=== PATIENT | female | born 1965 | race Caucasian/White ===

== ENCOUNTER → 2020-07-25 09:36 | Outpatient (BNVA) | payer OTHER, SELFPAY | PROVIDERS: PCP Internal Medicine; Referring Provider Internal Medicine; Visit Provider Urology | DX: N32.81 Overactive bladder (principal) | CPT/HCPCS: 51798; 81002; 99202 ==

== ENCOUNTER 2020-09-03 08:21 | Outpatient (REF) | payer OTHER, SELFPAY ==
--- NOTE | 2020-09-03 08:28 | US_ITS ---
EXAMINATION: US ABDOMEN COMPLETE CLINICAL INFORMATION: Epigastric pain. COMPARISON: None. TECHNIQUE: Real-time imaging of the abdominal viscera. FINDINGS: PANCREAS: Normal. ABDOMINAL AORTA: The proximal, mid, and distal segments are normal in caliber. INFERIOR VENA CAVA: Visualized portions are normal. LIVER: The liver is normal in size. The liver contour is normal. Parenchymal echogenicity is increased. No focal hepatic lesion. There is no intrahepatic biliary duct dilatation seen. GALLBLADDER: Normal. The gallbladder is physiologically distended without evidence of stones, sludge, polyps, wall thickening or pericholecystic fluid. COMMON BILE DUCT: Normal in caliber measuring 0.29 cm in diameter. RIGHT KIDNEY: No hydronephrosis. There are 2 echogenic stones seen. A midpole stone measuring 1.2 x 0.39 x 1.0 cm and a lower pole stone measures 0.33 x 0.22 x 0.18 cm.. The kidney measures 10.2 cm in maximum dimension. LEFT KIDNEY: Normal. No hydronephrosis. No renal calculi or focal parenchymal lesions. The kidney measures 10.0 cm in maximum dimension. SPLEEN: The spleen measures 8.0 cm in maximum dimension. FREE FLUID: None. US/US abdomen complete IMPRESSION: Hepatic steatosis without focal lesion. Nonobstructive right renal midpole and lower pole calculi. The rest of the abdominal ultrasound is unremarkable.
== END 2020-09-03 08:22 | disposition home or self-care (01) ==
LOC: HO.HMGCX 08:21
PROVIDERS: PCP Internal Medicine; Visit Provider Internal Medicine
DX: R10.13 Epigastric pain (principal)
CPT/HCPCS: 76700

== ENCOUNTER → 2020-09-27 10:06 | Outpatient (BNVA) | payer OTHER, SELFPAY | PROVIDERS: PCP Internal Medicine; Visit Provider Urology | DX: N39.0 Urinary tract infection, site not specified (principal); N20.0 Calculus of kidney; N32.81 Overactive bladder; A49.9 Bacterial infection, unspecified | CPT/HCPCS: 81002; 99212 ==

== ENCOUNTER 2020-10-01 09:49 | Emergency (ER) | payer OTHER, SELFPAY ==
[2020-10-01 10:02] VITALS: BP 107/66; PULSE 84; RESP 16; TEMP 36.5; O2SAT 97; BMI 34.3
--- NOTE | 2020-10-01 10:17 | ED.ALLEREA ---
HPI - Allergic Reaction General Chief complaint: Allergic Reaction Stated complaint: allergic reaction Time Seen by Provider: 10/01/20 10:17 Source: patient Mode of arrival: ambulatory Limitations: no limitations History of Present Illness HPI narrative: States taking bactrim x 2 doses for UTI given 2 days ago by her urologist and today having vaginal itch which she gets with abx yeat infection and rash to dorsum of the right foot. She had similar 4 year ago which she took the same antibiotics. MD complaint: allergic reaction Onset (ago): day(s) Exposure: other (Bactrim) Symptoms: rash Previous Allergic Reaction History: other (Rash) Related Data Home Medications Medication Instructions Recorded Confirmed albuterol sulfate 2.5 mg INHALATION Q4-6H PRN 07/25/20 albuterol sulfate 90 mcg/actuation 0 mcg INHALATION 07/25/20 aerosol inhaler bupropion HCl 300 mg 24 hr tablet, mg PO 07/25/20 extended release clonidine HCl 0.1 mg tablet 0.1 mg PO BID 07/25/20 cyclobenzaprine 10 mg tablet 10 mg PO BEDTIME 07/25/20 fluoxetine 20 mg capsule 40 mg PO QAM 07/25/20 pregabalin 100 mg capsule 0 mg PO 07/25/20 topiramate 50 mg tablet 0 mg PO 07/25/20 trazodone 100 mg tablet 200 mg PO BEDTIME 07/25/20 clonidine HCl 0.2 mg tablet 0.2 mg PO BID 09/27/20 Previous Rx's Medication Instructions Recorded oxybutynin chloride 10 mg 10 mg PO DAILY 60 Days #60 tab 09/13/20 tablet,extended release 24 hr sulfamethoxazole 800 1 tab PO BID 5 Days #10 tab 09/28/20 mg-trimethoprim 160 mg tablet cefdinir 300 mg PO BID 3 Days #6 cap 10/01/20 fluconazole [Diflucan] 150 mg PO DAILY #1 tab 10/01/20 metronidazole 1 appful VAGINAL BEDTIME #5 g 10/01/20 tamsulosin 0.4 mg PO BEDTIME #14 cap 10/03/20 tramadol 50 mg PO Q6H PRN #14 tab 10/03/20 Allergies Allergy/AdvReac Type Severity Reaction Status Date / Time sulfamethoxazole Allergy Rash Verified 10/03/20 10:13 [From Bactrim] trimethoprim [From Bactrim] Allergy Rash Verified 10/03/20 10:13 Review of Systems Review of Systems: Constitutional: No Weight loss, No Fever, No Chills, No Night Sweats, No Fatigue, No Malaise ENT/Mouth: No Hearing loss, No Ear Pain, No Nasal Congestion, No Sinus Pain, No Hoarseness, No sore throat, No Rhinorrhea, No Swallowing Difficulty Eyes: No Eye Pain, No Swelling, No Redness, No Foreign Body, No Discharge, No Vision Changes Cardiovascular: No Chest Pain, No SOB, No Dyspnea on Exertion, No Orthopnea, No Edema, No Palpitations Respiratory: No Cough, No Sputum, No Wheezing, No Smoke Exposure, No Dyspnea Gastrointestinal: No Nausea, No Vomiting, No Diarrhea, No Constipation, No abdominal Pain, No Hematochezia, No Melena Genitourinary: no irregular bleeding, No Dysuria, No Urinary Frequency, No Hematuria, No Urinary Incontinence, No Urgency, No Flank Pain Musculoskeletal: No joint pain, No Myalgias, No Joint Swelling Skin: No Skin Lesions, as noted per HPI Neuro: No Weakness, No Numbness, No Paresthesias, No Loss of Consciousness, No Dizziness, No Headache Psych: No Social Issues Heme/Lymph: No Bruising, No Bleeding,No Lymphadenopathy Endocrine: No Polyuria, No Polydipsia, No Temperature Intolerance Yes all other systems are reviewed and are negative [facility] Past Medical History Medical History Anxiety Asthma Depression Fibromyalgia Insomnia Kidney stones UTI (urinary tract infection) Surgical History History of back surgery Hx of appendectomy Hx of lithotripsy Social History Social History Smoking Status: Former smoker Substance Use Type: Marijuana Physical Exam Vital Signs: Vital Signs: Last Vital Signs Temp 97.7 F 10/01/20 10:02 Pulse 84 10/01/20 10:02 Resp 16 10/01/20 10:02 BP 107/66 10/01/20 10:02 Pulse Ox 97 10/01/20 10:02 Body Mass Index 34.3 Reviewed Const: General: cooperative and healthy appearing; No acute distress or intoxicated appearing Nutritional Appearance: average body habitus Orientation/consciousness: patient oriented x3 HENMT: Head: Yes normal to inspection Ears: hearing grossly normal bilaterally Eyes: General: appearance normal, both eyes and all related structures Visual Walton: normal visual walton by confrontation Neck: Neck: Yes normal visual inspection, No positive Brudzinski's sign, No positive Kernig's sign and No tender Thyroid: Thyroid normal Chest: Chest palpation & inspection: normal inspection of the chest Resp: Effort & Inspection: normal respiratory effort Cardio: Jugular venous distension: no JVD Rhythm: regular rhythm Heart sounds: S1 normal heart sound present and S2 normal heart sound present GI: Inspection: Yes normal to inspection Percussion: Yes normal to percussion Auscultation: normal bowel sounds : General: Yes no CVA tenderness Back/Spine/Pelvis: Back: no CVA tenderness Skin: General skin exam: no rashes or lesions noted Full body images: 1. Slightly raised urticarial type rash to the mid dorsal foot. No erythema. Neuro: General: patient oriented x3 Extrem: General: Yes normal to inspection Course Course Course Narrative: Likely allergy to Bactrim as she had before. Will change to cephalosporin has follow-up with Urology in 2 days, Diflucan 1 dose. Will add Bactrim to her allergy list. No findings to suggest Romo-Killian. Discharge Plan Discharge Clinical Impression: Adverse reaction to antibiotic Patient Disposition: Home, Self-Care Instructions: Antibiotic Medication Allergy (ED) Additional Instructions: Please add Bactrim to her allergy Do not take Bactrim in the future Start the new antibiotic as prescribed Follow-up with urologist as scheduled for procedure Return if any concerns or worsening symptoms Thank you Prescriptions: New cefdinir 300 mg capsule 300 mg PO BID 3 Days Qty: 6 RF: 0 fluconazole [Diflucan] 150 mg tablet 150 mg PO DAILY Qty: 1 RF: 0 metronidazole 1.3 % gel 1 appful vaginal BEDTIME Qty: 5 RF: 0 No Action oxybutynin chloride 10 mg tablet extended release 24hr 10 mg PO DAILY 60 Days Qty: 60 RF: 2 tramadol 50 mg tablet 50 mg PO Q6H PRN (Reason: pain) Qty: 14 RF: 0 tamsulosin 0.4 mg capsule 0.4 mg PO BEDTIME Qty: 14 RF: 0 pregabalin 100 mg capsule 0 mg PO RF: 0 topiramate 50 mg tablet 0 mg PO RF: 0 albuterol sulfate 90 mcg/actuation HFA aerosol inhaler 0 mcg inhalation RF: 0 bupropion HCl 300 mg tablet extended release 24 hr PO RF: 0 cyclobenzaprine 10 mg tablet 10 mg PO BEDTIME RF: 0 clonidine HCl 0.1 mg tablet 0.1 mg PO BID RF: 0 trazodone 100 mg tablet 200 mg PO BEDTIME RF: 0 fluoxetine 20 mg capsule 40 mg PO QAM RF: 0 albuterol sulfate 2.5 mg /3 mL (0.083 %) solution for nebulization 2.5 mg inhalation Q4-6H PRNRF: 0 clonidine HCl 0.2 mg tablet 0.2 mg PO BID RF: 0 sulfamethoxazole-trimethoprim [Bactrim DS] 800-160 mg tablet 1 tab PO BID 5 Days Qty: 10 RF: 0 Referrals: Chrystal Gonzalez MD [Primary Care Provider] - 1 week Interventions: ED Discharge Assessment Last Done: 10/01/20 10:30 Discharge Date/Time: 10/01/20 10:32
== END 2020-10-01 10:32 | disposition home or self-care (01) ==
PROVIDERS: Emergency Provider Emergency Medicine; PCP Internal Medicine
DX: L50.0 Allergic urticaria (principal); T36.8X5A Adverse effect of other systemic antibiotics, initial encounter; X58.XXXA Exposure to other specified factors, initial encounter; Z87.440 Personal history of urinary (tract) infections
CPT/HCPCS: 99283

== ENCOUNTER 2020-10-03 08:11 | Day surgery (SDC) | payer OTHER, SELFPAY ==
--- NOTE | 2020-10-02 13:07 | HO.ANESPROP2 ---
Documented by User: Mackenzie Tom 10/02/20 13:08 HPI - Anesthesia Eval Consult details Narrative: 55yo F for R ESWL No prev ESWL on record PMFSH Active Problems Active Problems: All Active Problems (Updated 10/02/20 @ 00:00 by Darinel Odonnell) Overactive bladder (Acute) Nephrolithiasis (Acute) UTI (urinary tract infection), bacterial (Acute) Past Medical History Medical History Anxiety Asthma Depression Fibromyalgia Insomnia Kidney stones UTI (urinary tract infection) Surgical History Surgical History History of back surgery Hx of appendectomy Hx of lithotripsy Social History Social History Smoking Status: Former smoker Use of substances other than those prescribed or required for medical reasons: Yes Substance Use Type: Marijuana Substance Use Frequency: Daily Advance Directives: No Advance Directives Information Provided: Yes Meds Allergies Allergy/AdvReac Type Severity Reaction Status Date / Time sulfamethoxazole Allergy Rash Verified 10/03/20 10:13 [From Bactrim] trimethoprim [From Bactrim] Allergy Rash Verified 10/03/20 10:13 Home Medications Medication Instructions Recorded Confirmed Last Taken Type albuterol sulfate 2.5 mg INHALATION Q4-6H PRN 07/25/20 Unknown History albuterol sulfate 90 mcg/actuation 0 mcg INHALATION 07/25/20 Unknown History aerosol inhaler bupropion HCl 300 mg 24 hr tablet, mg PO 07/25/20 Unknown History extended release clonidine HCl 0.1 mg tablet 0.1 mg PO BID 07/25/20 Unknown History cyclobenzaprine 10 mg tablet 10 mg PO BEDTIME 07/25/20 Unknown History fluoxetine 20 mg capsule 40 mg PO QAM 07/25/20 Unknown History pregabalin 100 mg capsule 0 mg PO 07/25/20 Unknown History topiramate 50 mg tablet 0 mg PO 07/25/20 Unknown History trazodone 100 mg tablet 200 mg PO BEDTIME 07/25/20 Unknown History clonidine HCl 0.2 mg tablet 0.2 mg PO BID 09/27/20 Unknown History Exam Exam Date and Time: October 02, 2020 130 Assessment and Plan Assessment Anesthesia Assessment: Chart Reviewed Documented by User: Shyann Elkins 10/03/20 10:59 PMFSH Past Medical History Medical History Anxiety Asthma Depression Fibromyalgia Insomnia Kidney stones UTI (urinary tract infection) Surgical History Surgical History History of back surgery Hx of appendectomy Hx of lithotripsy Social History Social History Smoking Status: Former smoker Use of substances other than those prescribed or required for medical reasons: Yes Substance Use Type: Marijuana Substance Use Frequency: Daily Advance Directives: No Advance Directives Information Provided: Yes Meds Allergies Allergy/AdvReac Type Severity Reaction Status Date / Time sulfamethoxazole Allergy Rash Verified 10/03/20 10:13 [From Bactrim] trimethoprim [From Bactrim] Allergy Rash Verified 10/03/20 10:13 Home Medications Medication Instructions Recorded Confirmed Last Taken Type albuterol sulfate 2.5 mg INHALATION Q4-6H PRN 07/25/20 Unknown History albuterol sulfate 90 mcg/actuation 0 mcg INHALATION 07/25/20 Unknown History aerosol inhaler bupropion HCl 300 mg 24 hr tablet, mg PO 07/25/20 Unknown History extended release clonidine HCl 0.1 mg tablet 0.1 mg PO BID 07/25/20 Unknown History cyclobenzaprine 10 mg tablet 10 mg PO BEDTIME 07/25/20 Unknown History fluoxetine 20 mg capsule 40 mg PO QAM 07/25/20 Unknown History pregabalin 100 mg capsule 0 mg PO 07/25/20 Unknown History topiramate 50 mg tablet 0 mg PO 07/25/20 Unknown History trazodone 100 mg tablet 200 mg PO BEDTIME 07/25/20 Unknown History clonidine HCl 0.2 mg tablet 0.2 mg PO BID 09/27/20 Unknown History Exam Airway Mallampati Class: II TM Dist: >3cm Neck ROM: Full Assessment and Plan Assessment Anesthesia Assessment: Anesthesia Plan Discussed and Chart Reviewed Final Anesthetic Review NPO: Yes ASA Class: II Final Preanesthetic Review: No Changes in Pt Med Stat, Meds/Allgs Chart Reviewed, Consent Obtained/Reviewed and Anes Risks/Benef Reviewed Patient Risk: Low Procedure Risk: Low Assessment/Block/Sedation in SS: Assess/Block/Sedation-SS Anesthetic Plan Anesthetic Plan: MAC: Disposition: Standard PACU
--- NOTE | ~2020-10-03 | XR_ITS ---
EXAMINATION: XR ABDOMEN KUB CLINICAL INDICATION: Lithotripsy COMPARISON: Ultrasound of September 03, [address] abdomen and pelvis of March 17, 2019 TECHNIQUE: AP view of the abdomen. FINDINGS: There are 2 calcifications seen overlying the lower pole of the right kidney. One measures approximately 7 mm in long axis and the other measures 4 mm in long axis. No other calcifications are identified along the paths of the ureters. Psoas margins are intact. No destructive bony lesion. There is severe narrowing of the L4-L5 disc space. Sacroiliac joints unremarkable. Hip joints maintained. XR/XR KUB IMPRESSION: 2 right renal lower pole calculi similar in appearance to CT scan of March 17, 2019. No definite ureteral calculus identified.
[2020-10-03 10:19] VITALS: BMI 35.2
[2020-10-03 10:28] VITALS: BP 132/81; PULSE 82; RESP 18; TEMP 36.6; O2SAT 98
[2020-10-03] MEDS: Lactated Ringers 1,000 ML 100 ML IVCONT (10:42)
--- NOTE | 2020-10-03 11:00 | MHC.SHP ---
Pre-Procedural Eval Section A The patient is an INPATIENT: No Changes since office visit: No Cold of Flu in the past 2 weeks, No New Medical Problems, No Changes in Medication and No Patient answered all questions The History & Physical has been completed within 30 days and I have reviewed it.: Yes Section B Chief Complaint: calculus of kidney Allergies: Allergies Allergy/AdvReac Type Severity Reaction Status Date / Time sulfamethoxazole Allergy Rash Verified 10/03/20 10:13 [From Bactrim] trimethoprim [From Bactrim] Allergy Rash Verified 10/03/20 10:13 Plan I have reviewed the history and physical and performed a pertinent physical examination on my patient. No changes have occurred unless specified right ESWL 12mm
--- NOTE | 2020-10-03 11:19 | PM.OP ---
Brief Operative Note Date of Service: 10/03/20 Pre-op diagnosis: right renal stone 1cm Post-op diagnosis: same Procedure: right ESWL Surgeon: Marc Bill MD Anesthesia: MAC Estimated blood loss (mL): 0 Pathology: none sent Condition: stable Disposition: same day
--- NOTE | 2020-10-03 11:21 | HO.ANESPROP2 ---
[facility] Active Problems Active Problems: All Active Problems (Updated 10/02/20 @ 00:00 by Darinel Odonnell) Overactive bladder (Acute) Nephrolithiasis (Acute) UTI (urinary tract infection), bacterial (Acute) Past Medical History Medical History Anxiety Asthma Depression Fibromyalgia Insomnia Kidney stones UTI (urinary tract infection) Surgical History Surgical History History of back surgery Hx of appendectomy Hx of lithotripsy Social History Social History Smoking Status: Former smoker Use of substances other than those prescribed or required for medical reasons: Yes Substance Use Type: Marijuana Substance Use Frequency: Daily Advance Directives: No Advance Directives Information Provided: Yes Meds Allergies Allergy/AdvReac Type Severity Reaction Status Date / Time sulfamethoxazole Allergy Rash Verified 10/03/20 10:13 [From Bactrim] trimethoprim [From Bactrim] Allergy Rash Verified 10/03/20 10:13 Active Medications: Current Medications Generic Name Dose Route Start Last Admin Trade Name Freq PRN Reason Stop Dose Admin Acetaminophen 650 mg 10/03/20 10:37 Acetaminophen 325 Mg Tablet PO ONCE PRN Pain, Mild (Pain Scale 1-3) Albuterol Sulfate 2.5 mg 10/03/20 08:18 Albuterol Sulfate (0.083%) 2.5 Mg/3 Ml Vial.Neb INHALE ONCE PRN Shortness of Breath/Wheezing Lactated Ringer's 1,000 mls @ 100 mls/hr 10/03/20 08:30 10/03/20 10:42 Lr IVCONT 100 mls/hr .Q10H SUSIE Administration Ondansetron HCl 4 mg 10/03/20 10:37 Ondansetron Hcl 4 Mg/2 Ml Vial IVPUSH ONCE PRN Nausea and Vomiting Oxycodone HCl 5 mg 10/03/20 10:37 Oxycodone Hcl Immed Release 5 Mg Tablet PO ONCE PRN Pain, Severe (Pain Scale 7-10) Home Medications Medication Instructions Recorded Confirmed Last Taken Type albuterol sulfate 2.5 mg INHALATION Q4-6H PRN 07/25/20 Unknown History albuterol sulfate 90 mcg/actuation 0 mcg INHALATION 07/25/20 Unknown History aerosol inhaler bupropion HCl 300 mg 24 hr tablet, mg PO 07/25/20 Unknown History extended release clonidine HCl 0.1 mg tablet 0.1 mg PO BID 07/25/20 Unknown History cyclobenzaprine 10 mg tablet 10 mg PO BEDTIME 07/25/20 Unknown History fluoxetine 20 mg capsule 40 mg PO QAM 07/25/20 Unknown History pregabalin 100 mg capsule 0 mg PO 07/25/20 Unknown History topiramate 50 mg tablet 0 mg PO 07/25/20 Unknown History trazodone 100 mg tablet 200 mg PO BEDTIME 07/25/20 Unknown History clonidine HCl 0.2 mg tablet 0.2 mg PO BID 09/27/20 Unknown History Exam Exam Date and Time: October 03, 2020 1121 Height,Weight and Vital Signs: Height 5 ft Weight 81.647 kg Last Vital Signs Temp 97.9 F 10/03/20 10:28 Pulse 82 10/03/20 10:28 Resp 18 10/03/20 10:28 BP 132/81 10/03/20 10:28 Pulse Ox 98 10/03/20 10:28 Airway Mallampati Class: II TM Dist: >3cm Neck ROM: Full Assessment and Plan Assessment Anesthesia Assessment: Anesthesia Plan Discussed and Chart Reviewed Final Anesthetic Review NPO: Yes ASA Class: II Final Preanesthetic Review: No Changes in Pt Med Stat, Meds/Allgs Chart Reviewed, Consent Obtained/Reviewed and Anes Risks/Benef Reviewed Patient Risk: Low Procedure Risk: Low Assessment/Block/Sedation in SS: Assess/Block/Sedation-SS Anesthetic Plan Anesthetic Plan: MAC: Disposition: Standard PACU
--- NOTE | 2020-10-03 11:23 | W.PM.OPN ---
Operative Note Operative Note Date of Service: 10/03/20 Narrative: PreOperative Diagnosis: right Renal stones Post Operative Diagnosis: right Renal stones 12mm lower pole Procedure: right ESWL Surgeon: Dr Marc Bill Anesthesia: mac/sedation Indications for procedure: They understand ESWL may be a staged procedure and subsequent intervention may be required based on imaging after ESWL. They also understand there is a risk of bleeding, infection, damage to adjacent organs. Procedure: After informed consent was verified the patient was brought to the operating room and placed in a supine position. Anesthesia was performed per protocol. Safety pause time-out was performed. Imaging was in the room and laterality confirmed. ESWL was performed. The 1st 500 shocks were performed at 60 hertz. These were performed with increasing power. Once maximum power was reached the rate was increased to 180 hertz. A total of 2500 shocks were given. Fluoroscopy showed stone disintegration. They tolerated procedure well and was transferred to the recovery area upon completion.
[2020-10-03 11:41] VITALS: BP 122/81; PULSE 96; RESP 16; TEMP 36.6; O2SAT 97
[2020-10-03] MEDS: Phenazopyridine HCL 100 MG TABLET PO (11:57)
[2020-10-03 11:59] VITALS: BP 113/69; PULSE 68; RESP 16; TEMP 19.4; O2SAT 99
[2020-10-03 12:15] VITALS: BP 119/74; PULSE 62; RESP 18; O2SAT 98
[2020-10-03 12:30] VITALS: BP 109/73; PULSE 62; RESP 18; O2SAT 98
[2020-10-03 12:45] VITALS: BP 124/70; PULSE 63; RESP 18; O2SAT 98
== END 2020-10-03 13:33 | disposition home or self-care (01) ==
PROVIDERS: PCP Internal Medicine; Visit Provider Urology
PROC: (CPT 50590; principal; 2020-10-03 11:50)
DX: N20.0 Calculus of kidney (principal); Z87.442 Personal history of urinary calculi; Z87.440 Personal history of urinary (tract) infections; J45.909 Unspecified asthma, uncomplicated; F12.90 Cannabis use, unspecified, uncomplicated; Z79.899 Other long term (current) drug therapy; Z87.891 Personal history of nicotine dependence; Z88.2 Allergy status to sulfonamides; Z88.8 Allergy status to other drugs, medicaments and biological substances
CPT/HCPCS: 50590; 74018; J1885; J2405; J3010

== ENCOUNTER 2020-10-24 03:58 | Emergency (ER) | payer OTHER, SELFPAY ==
--- NOTE | ~2020-10-24 | CT_ITS ---
EXAMINATION: CT ABDOMEN AND PELVIS WITHOUT CONTRAST CLINICAL INFORMATION: Right flank pain, question stone COMPARISON: 03/17/2019 TECHNIQUE: Multidetector volumetric imaging was performed from the superior aspect of the liver through the pubic symphysis. Sagittal and coronal reformatted images were obtained on the technologist's workstation. This CT examination was performed using dose optimization techniques as appropriate, variously including the following: *Automated exposure control *Adjustment of mA and/or kV according to patient size (this includes techniques or standardized protocols for targeted exams where dose is matched to indication/reason for exam; i.e. extremities or head) *Use of iterative reconstruction technique DLP: 774 mGy-cm FINDINGS: LUNG BASES: The visualized lung bases are unremarkable. Coronary artery calcifications are present. LIVER, GALLBLADDER, AND BILIARY TREE: The liver is normal in size, shape, and attenuation. No focal hepatic lesion or biliary ductal dilatation is present. The gallbladder appears partially contracted. PANCREAS: Unremarkable. SPLEEN: Unremarkable. ADRENAL GLANDS: Unremarkable. KIDNEYS AND URETERS: There is a 3 mm calculus at the right ureteropelvic junction with mild hydronephrosis. No left hydronephrosis. There are additional calculi in the mid and lower right kidney measuring up to 8 mm. A faint 3 mm calcification is present in the upper left kidney. BLADDER: Unremarkable. GASTROINTESTINAL TRACT: There is minimal colonic diverticulosis without diverticulitis. The small and large bowel are otherwise unremarkable. No free fluid or free air is seen. ABDOMINAL WALL: No significant hernia is appreciated. LYMPH NODES: Normal. VASCULAR: Mild scattered atherosclerotic calcifications noted. PELVIC VISCERA: Lobulated contour towards the uterine fundus favors fibroids. OSSEOUS STRUCTURES: Degenerative changes are noted in the spine. Right L4 pars defect is noted. CT/CT abdomen pelvis wo con IMPRESSION: 1. Right ureteropelvic junction calculus measuring 3 mm with mild hydronephrosis. 2. Additional bilateral renal calculi as noted above.
--- NOTE | 2020-10-24 06:05 | PC.NURSE ---
PAPER DOCUMENTATION DUE TO DOWNTIME FOR COMPUTER UPDATES, PATIENT RECEIVED IN THE SYSTEM WHEN BACK ON LINE AT 6AM
--- NOTE | 2020-10-24 06:12 | ED.ABDPAIN ---
HPI - Abdominal Pain General Chief Complaint: Abdominal Pain Time Seen by Provider: 10/24/20 06:12 Source: patient Mode of arrival: ambulatory Limitations: no limitations History of Present Illness HPI narrative: Patient history of kidney stone had lithotripsy 3 weeks ago on the right side did not have any CT scan done lately complaining of pain for last 2 hours patient woke up from the sleep at 03:00 o'clock with right flank pain started vomiting. No hematuria no urinary complaints MD elicited complaint: flank pain Onset (ago): hour(s) (2) Pain Consistency: constant Location: R flank Severity: moderate Quality: stabbing Radiation: none Migration to: no migration Exacerbating factors: nothing Associated symptoms: nausea and vomiting Related Data Home Medications Medication Instructions Recorded Confirmed albuterol sulfate 2.5 mg INHALATION Q4-6H PRN 07/25/20 albuterol sulfate 90 mcg/actuation 0 mcg INHALATION 07/25/20 aerosol inhaler bupropion HCl 300 mg 24 hr tablet, mg PO 07/25/20 extended release clonidine HCl 0.1 mg tablet 0.1 mg PO BID 07/25/20 cyclobenzaprine 10 mg tablet 10 mg PO BEDTIME 07/25/20 fluoxetine 20 mg capsule 40 mg PO QAM 07/25/20 pregabalin 100 mg capsule 0 mg PO 07/25/20 topiramate 50 mg tablet 0 mg PO 07/25/20 trazodone 100 mg tablet 200 mg PO BEDTIME 07/25/20 clonidine HCl 0.2 mg tablet 0.2 mg PO BID 09/27/20 Previous Rx's Medication Instructions Recorded oxybutynin chloride 10 mg 10 mg PO DAILY 60 Days #60 tab 09/13/20 tablet,extended release 24 hr sulfamethoxazole 800 1 tab PO BID 5 Days #10 tab 09/28/20 mg-trimethoprim 160 mg tablet cefdinir 300 mg PO BID 3 Days #6 cap 10/01/20 fluconazole [Diflucan] 150 mg PO DAILY #1 tab 10/01/20 metronidazole 1 appful VAGINAL BEDTIME #5 g 10/01/20 tamsulosin 0.4 mg PO BEDTIME #14 cap 10/03/20 tramadol 50 mg PO Q6H PRN #14 tab 10/03/20 Allergies Allergy/AdvReac Type Severity Reaction Status Date / Time sulfamethoxazole Allergy Rash Verified 10/03/20 10:13 [From Bactrim] trimethoprim [From Bactrim] Allergy Rash Verified 10/03/20 10:13 Review of Systems Review of Systems Constitutional : No Weight loss, No Fever, No Chills ENT/Mouth : No sore throat, No Rhinorrhea Eyes: No Eye Pain, No Swelling Cardiovascular : No Chest Pain, no palpitations Respiratory : No Cough, No Sputum, no shortness of breath Gastrointestinal : +Nausea, + Vomiting, No Diarrhea, No abdominal Pain, no black stools Genitourinary : No Dysuria, No Urinary Frequency Musculoskeletal : No joint pain, No Myalgias, No Joint Swelling Skin : No Skin Lesions, No rash Neuro : No Weakness, No Numbness, No Dizziness, No Headache Psych : No Anxiety/Panic, No Depression Heme/Lymph: No Bruising, No Lymphadenopathy Endocrine : No Polyuria, No Polydipsia All other systems reviewed and are negative Physical Exam Const: General: cooperative and acute distress Nutritional Appearance: well nourished Orientation/consciousness: patient oriented x3 HENMT: Head: Yes normocephalic and Yes atraumatic Mouth: Normal oral and palatal mucosa present Eyes: General: appearance normal, both eyes and all related structures Neck: Neck: Yes normal visual inspection Resp: Effort & Inspection: normal respiratory effort Auscultation: clear to auscultation bilaterally Cardio: Rate: regular rate Rhythm: regular rhythm Heart sounds: S1 normal heart sound present and S2 normal heart sound present Peripheral pulses: Peripheral pulses 2+ throughout GI: Inspection: Yes normal to inspection Palpation (GI): Soft to palpation and nontender Auscultation: normal bowel sounds : General: Yes CVA tenderness on the right Back/Spine/Pelvis: Back: CVA tenderness Thoracic/Lumbar Spine: thoracic and lumbar spine normal to inspection Skin: General skin exam: no rashes or lesions noted Neuro: General: patient oriented x3 and no focal motor deficits Extrem: General: Yes normal to inspection and Yes no pedal edema MDM - Abdominal Pain MDM Narrative Medical decision making narrative: pt with hx of kidney stones urine showed few RBCs WBC count patient did not have any CT scan for last 5 years ago only KUB done last month will do a CAT scanned to rule out any significant uretric stone Patient's CT scan showed proximal ureteric stone with slight hydronephrosis. Patient feeling much better at this time will discharge patient home advised to follow-up with urologist Medical Records Attestation: I reviewed the patient's medical records. Lab Data Result diagrams: 10/24/20 04:40 Labs: Lab Results 10/24/20 10/24/20 Range/Units 04:40 04:40 Sodium Cancelled 140 Potassium Cancelled 4.2 Chloride Cancelled 106 Carbon Dioxide Cancelled 27 Anion Gap Cancelled 11 L BUN Cancelled 19 H Creatinine Cancelled 0.86 Estim Creat Clear Calc Cancelled TNP Estimated GFR Cancelled > 60 Random Glucose Cancelled 110 Discharge Plan Discharge Prescriptions: No Action oxybutynin chloride 10 mg tablet extended release 24hr 10 mg PO DAILY 60 Days Qty: 60 RF: 2 tramadol 50 mg tablet 50 mg PO Q6H PRN (Reason: pain) Qty: 14 RF: 0 tamsulosin 0.4 mg capsule 0.4 mg PO BEDTIME Qty: 14 RF: 0 cefdinir 300 mg capsule 300 mg PO BID 3 Days Qty: 6 RF: 0 fluconazole [Diflucan] 150 mg tablet 150 mg PO DAILY Qty: 1 RF: 0 metronidazole 1.3 % gel 1 appful vaginal BEDTIME Qty: 5 RF: 0 pregabalin 100 mg capsule 0 mg PO RF: 0 topiramate 50 mg tablet 0 mg PO RF: 0 albuterol sulfate 90 mcg/actuation HFA aerosol inhaler 0 mcg inhalation RF: 0 bupropion HCl 300 mg tablet extended release 24 hr PO RF: 0 cyclobenzaprine 10 mg tablet 10 mg PO BEDTIME RF: 0 clonidine HCl 0.1 mg tablet 0.1 mg PO BID RF: 0 trazodone 100 mg tablet 200 mg PO BEDTIME RF: 0 fluoxetine 20 mg capsule 40 mg PO QAM RF: 0 albuterol sulfate 2.5 mg /3 mL (0.083 %) solution for nebulization 2.5 mg inhalation Q4-6H PRNRF: 0 clonidine HCl 0.2 mg tablet 0.2 mg PO BID RF: 0 sulfamethoxazole-trimethoprim [Bactrim DS] 800-160 mg tablet 1 tab PO BID 5 Days Qty: 10 RF: 0 PMFSH Past Medical History Medical History Anxiety Asthma Depression Fibromyalgia Insomnia Kidney stones UTI (urinary tract infection) Surgical History History of back surgery Hx of appendectomy Hx of lithotripsy Social History Social History Smoking Status: Former smoker Substance Use Type: Marijuana Advance Directives: No Advance Directives Information Provided: No
[2020-10-24 06:24] LABS: Anion Gap 11 (12-20); Carbon Dioxide 27 mmol/L (22-29); Chloride 106 mmol/L (96-108); Potassium 4.2 mmol/L (3.3-5.1); Sodium 140 mmol/L (135-145)
[2020-10-24 06:25] LABS: Blood Urea Nitrogen 19 mg/dL (9-16); Estimated Glomerular Filt Rate > 60; Glucose Random 110 mg/dL (60-115)
[2020-10-24 07:06] LABS: MANUAL DIFF FLAG NO
[2020-10-24 07:23] LABS: Glucose Urine UA NEG (NEG); Leukocyte Esterase Urine NEG (NEG); Nitrite Urine NEG (NEG); Specific Gravity - Urine >= 1.030 (1.005-1.025); Urine Blood 2+ (NEG); Urine Ketones NEG (NEG); Urine Protein NEG (NEG-TRACE)
[2020-10-24 07:24] LABS: Appearance Urine HAZY; Color Urine YELLOW
[2020-10-24] MEDS: Morphine Sulfate 4 MG/ML CARTRIDGE IVPUSH (07:28)
[2020-10-24] MEDS: Tamsulosin HCL 0.4 MG CAPSULE PO (07:28)
[2020-10-24 07:30] LABS: Bacteria Urine 2+ /LPF; Mucus Urine 2+ /LPF; Squamous Epithelial Cell Urine 2+ /LPF
[2020-10-24 07:50] LABS: Basophils Percent Auto 0.4 % (0-2); Eosinophils Absolute Auto 0.4 X10*3/uL (0.0-0.4); Eosinophils Percent Auto 5.3 % (0-4); Hematocrit 43.5 % (37-47); Hemoglobin 14.3 g/dl (12.0-16.0); Imm Gran Abs Auto 0.03 X10*3/uL (0.00-0.03); Imm Gran Pct Auto 0.4 % (0.0-0.4); Lymphocytes Percent Auto 38.5 % (20-40); Mean Corpuscular HGB Conc 32.9 g/dl (31.0-35.0); Mean Corpuscular Hemoglobin 31.3 pg (27.0-33.0); Mean Corpuscular Volume 95.2 fL (80-98); Mean Platelet Volume 11.6 fL (9.4-12.3); Monocytes Absolute Auto 0.7 X10*3/uL (0.1-1.2); Neutrophils Absolute Auto 3.6 X10*3/uL (2.0-8.3); Neutrophils Percent Auto 46.4 % (45-73); Platelet Count 232 X10*3/uL (160-400); Red Blood Count 4.57 X10*6/uL (4.20-5.50); Red Cell Distribution Width 13.2 % (11.0-16.0); White Blood Count 7.8 X10*3/uL (4.8-10.8)
== END 2020-10-24 07:52 | disposition home or self-care (01) ==
PROVIDERS: Emergency Provider Internal Medicine
DX: N13.2 Hydronephrosis with renal and ureteral calculous obstruction (principal); R10.9 Unspecified abdominal pain; R11.2 Nausea with vomiting, unspecified; Z79.899 Other long term (current) drug therapy; Z87.891 Personal history of nicotine dependence
CPT/HCPCS: 36415; 74176; 80051; 81001; 82565; 82947; 84520; 85025; 99282; 99284; J2270

== ENCOUNTER → 2021-01-17 10:51 | Outpatient (BNVA) | payer OTHER, SELFPAY | PROVIDERS: Visit Provider Urology | DX: N20.0 Calculus of kidney (principal) | CPT/HCPCS: 99212 ==

== ENCOUNTER 2021-03-20 07:30 | Day surgery (SDC) | payer OTHER, SELFPAY ==
[2021-03-14 09:13] VITALS: BMI 35.2
--- NOTE | 2021-03-19 10:28 | HO.ANESPROP2 ---
Documented by User: Mackenzie Vaishali 03/19/21 10:28 HPI - Anesthesia Eval Consult details Narrative: 55yo F for Right Lithotripsy ESW Last ESWL 09/2020 with [facility] Active Problems Active Problems: All Active Problems (Updated 10/25/20 @ 00:01 by Darinel Odonnell) Overactive bladder (Acute) Nephrolithiasis (Acute) UTI (urinary tract infection), bacterial (Acute) Past Medical History Medical History Anxiety Asthma Depression Fibromyalgia Insomnia Kidney stones UTI (urinary tract infection) Surgical History Surgical History History of back surgery Hx of appendectomy Hx of lithotripsy Social History Social History Patient Tobacco Use Status: Former Tobacco user Tobacco use type: Cigarette Years Smoked: 3 Smoked in Last 30 Days: No Use of substances other than those prescribed or required for medical reasons: Yes Substance Use Type: Marijuana Are you DNR?: No Advance Directives: No Advance Directives Information Provided: Yes Meds Allergies Allergy/AdvReac Type Severity Reaction Status Date / Time sulfamethoxazole Allergy Rash Verified 03/20/21 08:03 [From Bactrim] trimethoprim [From Bactrim] Allergy Rash Verified 03/20/21 08:03 Home Medications Medication Instructions Recorded Confirmed Last Taken Type albuterol sulfate 2.5 mg INHALATION Q4-6H PRN 07/25/20 Unknown History albuterol sulfate 90 mcg/actuation 0 mcg INHALATION 07/25/20 Unknown History aerosol inhaler bupropion HCl 300 mg 24 hr tablet, mg PO 07/25/20 Unknown History extended release clonidine HCl 0.1 mg tablet 0.1 mg PO BID 07/25/20 Unknown History cyclobenzaprine 10 mg tablet 10 mg PO BEDTIME 07/25/20 Unknown History fluoxetine 20 mg capsule 40 mg PO QAM 07/25/20 Unknown History pregabalin 100 mg capsule 0 mg PO 07/25/20 Unknown History topiramate 50 mg tablet 0 mg PO 07/25/20 Unknown History trazodone 100 mg tablet 200 mg PO BEDTIME 07/25/20 Unknown History clonidine HCl 0.2 mg tablet 0.2 mg PO BID 09/27/20 Unknown History Exam Exam Date and Time: March 19, 2021 1028 Height,Weight and Vital Signs: Height 5 ft Weight 81.647 kg Assessment and Plan Assessment Anesthesia Assessment: Chart Reviewed Documented by User: Isabel Chaudhry 03/20/21 09:33 [facility] Past Medical History Medical History Anxiety Asthma Depression Fibromyalgia Insomnia Kidney stones UTI (urinary tract infection) Surgical History Surgical History History of back surgery Hx of appendectomy Hx of lithotripsy History of Problems with Anesthesia: No Social History Social History Patient Tobacco Use Status: Former Tobacco user Tobacco use type: Cigarette Years Smoked: 3 Smoked in Last 30 Days: No Use of substances other than those prescribed or required for medical reasons: Yes Substance Use Type: Marijuana Are you DNR?: No Advance Directives: No Advance Directives Information Provided: Yes Meds Allergies Allergy/AdvReac Type Severity Reaction Status Date / Time sulfamethoxazole Allergy Rash Verified 03/20/21 08:03 [From Bactrim] trimethoprim [From Bactrim] Allergy Rash Verified 03/20/21 08:03 Home Medications Medication Instructions Recorded Confirmed Last Taken Type albuterol sulfate 2.5 mg INHALATION Q4-6H PRN 07/25/20 Unknown History albuterol sulfate 90 mcg/actuation 0 mcg INHALATION 07/25/20 Unknown History aerosol inhaler bupropion HCl 300 mg 24 hr tablet, mg PO 07/25/20 Unknown History extended release clonidine HCl 0.1 mg tablet 0.1 mg PO BID 07/25/20 Unknown History cyclobenzaprine 10 mg tablet 10 mg PO BEDTIME 07/25/20 Unknown History fluoxetine 20 mg capsule 40 mg PO QAM 07/25/20 Unknown History pregabalin 100 mg capsule 0 mg PO 07/25/20 Unknown History topiramate 50 mg tablet 0 mg PO 07/25/20 Unknown History trazodone 100 mg tablet 200 mg PO BEDTIME 07/25/20 Unknown History clonidine HCl 0.2 mg tablet 0.2 mg PO BID 09/27/20 Unknown History Exam Airway Mallampati Class: II TM Dist: >3cm Neck ROM: Full Heart: RRR Lungs: CTA Assessment and Plan Assessment Anesthesia Assessment: Anesthesia Plan Discussed Final Anesthetic Review History of Problems with Anesthesia: No NPO: Yes ASA Class: II Final Preanesthetic Review: Meds/Allgs Chart Reviewed, Consent Obtained/Reviewed and Anes Risks/Benef Reviewed Patient Risk: Low Procedure Risk: Low Anesthetic Plan Anesthetic Plan: MAC: Disposition: Standard PACU
--- NOTE | ~2021-03-20 | XR_ITS ---
EXAMINATION: XR ABDOMEN KUB CLINICAL INDICATION: Right renal stones COMPARISON: CT scan of October 24, 2020 TECHNIQUE: AP view of the abdomen. FINDINGS: The bowel gas pattern is normal with no evidence of ileus or obstruction. There is a 9 mm calculus seen overlying the region of the right renal pelvis. There are some smaller approximately 3 mm calculi seen overlying the location of the lower pole right kidney. Phleboliths are present about the pelvis. No definite ureteral calculus is seen. Psoas margins are intact. There is degenerative disc disease seen at the L4-L5 level with facet arthropathy. There is partial sacralization left side of L5. XR/XR KUB IMPRESSION: Right nephrolithiasis as described.
[2021-03-20 08:04] VITALS: BMI 33.0
[2021-03-20 08:12] VITALS: BP 125/71; PULSE 71; RESP 16; TEMP 37; O2SAT 96
[2021-03-20] MEDS: Lactated Ringers 1,000 ML 100 ML IVCONT (08:24)
[2021-03-20] MEDS: Acetaminophen 325 MG TABLET 650 MG PO (08:24)
--- NOTE | 2021-03-20 10:02 | MHC.SHP ---
Pre-Procedural Eval Section A Date of Service: 03/20/21 Section B Chief Complaint: kidney stone Details of Present Illness: 8mm right renal stone Relevant Social History: None Present Medications: see Short Stay Collaborative assessment Medical History: No relevant PMH History of Previous Operations: No relevant previous surgery Allergies: Allergies Allergy/AdvReac Type Severity Reaction Status Date / Time sulfamethoxazole Allergy Rash Verified 03/20/21 08:03 [From Bactrim] trimethoprim [From Bactrim] Allergy Rash Verified 03/20/21 08:03 Review of Systems Sugical H&P ROS: Negative: Constitution, Cardiovascular, Respiratory, Neurological, Psychiatric, Hem-Onc, Allergic/Immunologic, Gastrointestinal, Genitourinary, Musculoskeletal, Integumentary, Endocrine and Eyes/Ears/Nose/Throat Exam Surgical H&P Exam: Normal: HEENT, Normal: Heart, Normal: Lungs, Normal: Extremities, Normal: Abdomen, Normal: Skin and Normal: Neurological Plan Diagnosis/Plan: Unchanged (right renal pole 8mm) I have reviewed the history and physical and performed a pertinent physical examination on my patient. No changes have occurred unless specified.
--- NOTE | 2021-03-20 10:38 | W.PM.OPN ---
Operative Note Operative Note Date of Service: 03/20/21 Narrative: PreOperative Diagnosis: right Renal stones Post Operative Diagnosis: right Renal stones Procedure: right ESWL Surgeon: Dr Marc Bill Anesthesia: mac/sedation Indications for procedure: They understand ESWL may be a staged procedure and subsequent intervention may be required based on imaging after ESWL. They also understand there is a risk of bleeding, infection, damage to adjacent organs. - right 9mm renal stone Procedure: After informed consent was verified the patient was brought to the operating room and placed in a supine position. Anesthesia was performed per protocol. Safety pause time-out was performed. Imaging was in the room and laterality confirmed. ESWL was performed. The 1st 500 shocks were performed at 60 hertz. These were performed with increasing power. Once maximum power was reached the rate was increased to 180 hertz. A total of 2500 shocks were given. Fluoroscopy showed stone disintegration. They tolerated procedure well and was transferred to the recovery area upon completion.
[2021-03-20] MEDS: fentaNYL citrate/PF 100 MCG/2 ML VIAL 50 MCG IVPUSH ×2 (10:58→11:08)
[2021-03-20] MEDS: oxyCODONE HCl Immed Release 5 MG TABLET 10 MG PO (10:58)
[2021-03-20 11:00] VITALS: BP 93/70; PULSE 85; RESP 16; TEMP 36.1; O2SAT 97
[2021-03-20 11:06] VITALS: BP 129/61; PULSE 63; RESP 16; O2SAT 96
[2021-03-20 11:11] VITALS: BP 126/67; PULSE 63; RESP 16; O2SAT 96
[2021-03-20 11:15] VITALS: BP 112/59; PULSE 53; RESP 16; O2SAT 99
[2021-03-20 11:30] VITALS: BP 137/73; PULSE 55; RESP 16; TEMP 36.1; O2SAT 97
== END 2021-03-20 12:03 | disposition home or self-care (01) ==
PROVIDERS: PCP Internal Medicine; Visit Provider Urology
PROC: (CPT 50590; principal; 2021-03-20 09:30)
DX: N20.0 Calculus of kidney (principal); Z87.442 Personal history of urinary calculi; J45.909 Unspecified asthma, uncomplicated; F32.9 Major depressive disorder, single episode, unspecified; Z87.440 Personal history of urinary (tract) infections; Z88.2 Allergy status to sulfonamides; Z87.891 Personal history of nicotine dependence; Z79.899 Other long term (current) drug therapy
CPT/HCPCS: 50590; 74018; J2250; J3010

== ENCOUNTER 2021-04-10 08:35 | Outpatient (REF) | payer OTHER, SELFPAY ==
--- NOTE | ~2021-04-10 | US_ITS ---
EXAMINATION: US RETROPERITONEAL LIMITED (RENAL ONLY) CLINICAL INFORMATION: Calculus of kidney. COMPARISON: KUB 03/20/2021 and 10/03/2020. CT abdomen and pelvis 10/24/2020. Ultrasound abdomen complete 09/03/2020. TECHNIQUE: Real-time imaging of the kidneys. FINDINGS: RIGHT KIDNEY: 10.5 x 4.3 x 5.3 cm (SAG x AP x TRV). The kidney is normal in size, contour, and echogenicity. Renal cortical thickness is normal. There are 4 small renal stones in the mid and lower pole, largest measuring 3 x 6 mm in the lower pole. No focal parenchymal lesions or hydronephrosis. No perinephric collection. LEFT KIDNEY: 10.1 x 6.4 x 5.4 cm (SAG x AP x TRV). The kidney is normal in size, contour, and echogenicity. Renal cortical thickness is normal. There is a small 2 mm stone in the lower pole. There is a 2 mm echogenic density in the cortex of the midpole questionable for small cortical calcification. No focal parenchymal lesions or hydronephrosis. No perinephric collection. US/US renal BI IMPRESSION: Bilateral renal stones, right greater than left.
== END 2021-04-10 08:36 | disposition home or self-care (01) ==
LOC: HO.US 08:35
PROVIDERS: Visit Provider Urology
DX: N20.0 Calculus of kidney (principal)
CPT/HCPCS: 76775

== ENCOUNTER → 2021-04-12 15:12 | Outpatient (BNVA) | payer OTHER, SELFPAY | PROVIDERS: PCP Internal Medicine; Visit Provider Urology | DX: N20.0 Calculus of kidney (principal); N20.1 Calculus of ureter; N39.0 Urinary tract infection, site not specified; Z87.891 Personal history of nicotine dependence; Z88.2 Allergy status to sulfonamides | CPT/HCPCS: Q3014 ==